=== PATIENT | male | born 1985 | race African-American/Black ===

== ENCOUNTER 2017-12-19 17:31 | Emergency (ER) | payer BC, OTHER ==
[2017-12-19 17:42] VITALS: BP 131/59; PULSE 68; RESP 20; TEMP 98
--- NOTE | 2017-12-19 18:37 | ED ---
General Adult HPI - General Chief complaint: Extremity Injury, Lower Stated complaint: Righ Foot Injury Time Seen by Provider: 12/19/17 18:22 Source: patient, RN notes reviewed Mode of arrival: ambulatory Limitations: no limitations - History of Present Illness Initial comments: 32-year-old male presents the emergency department for a chief complaint of right foot pain. Patient states he was trying to be funny and hit his foot on the top of a coffee table. Patient states he feels like the top of his foot is broken. Patient has never had surgery on that foot before. Patient has not tried ibuprofen or icing the extremity. This happened a couple hours ago. Patient states he did not fall or hit his head. Patient states he has full sensation in the right lower extremity and foot. Patient agrees to put ice on his foot in the emergency department. - Related Data Previous Rx's Medication Instructions Recorded Erythromycin Ophth Oint [Romycin 1 applic BOTH EYES QID #1 tube 07/03/16 Ophth Oint] Allergies Allergy/AdvReac Type Severity Reaction Status Date / Time No Known Allergies Allergy Verified 12/19/17 17:42 Review of Systems ROS Statement: Those systems with pertinent positive or pertinent negative responses have been documented in the HPI. ROS Other: All systems not noted in ROS Statement are negative. Past Medical History Past Medical History: No Reported History History of Any Multi-Drug Resistant Organisms: None Reported Past Surgical History: No Surgical Hx Reported Past Psychological History: No Psychological Hx Reported Smoking Status: Current every day smoker Past Alcohol Use History: None Reported Past Drug Use History: Marijuana General Exam Limitations: no limitations General appearance: alert, in no apparent distress Head exam: Present: atraumatic, normocephalic, normal inspection Respiratory exam: Present: normal lung sounds bilaterally. Absent: respiratory distress, wheezes, rales, rhonchi, stridor Cardiovascular Exam: Present: regular rate, normal rhythm, normal heart sounds. Absent: systolic murmur, diastolic murmur, rubs, gallop, clicks Extremities exam: Present: full ROM (Patient has full range of motion of the right ankle and digits of the right lower extremity.), tenderness (Tenderness to the dorsal aspect of the right foot. Patient has no tenderness to the fifth metatarsal. Patient has no tenderness to the medial or lateral malleoli. Patient has slight tenderness to the navicular bone.), normal capillary refill ( Refill less than 2 seconds and pedal pulse 2+ in the right lower extremity.), other (Patient has full sensation in the right foot.). Absent: joint swelling ( No swelling noted in the right lower extremity.), calf tenderness Course Vital Signs 12/19/17 17:40 Temperature 98 F Pulse Rate 68 Respiratory 20 Rate Blood Pressure 131/59 O2 Sat by Pulse 99 Oximetry Medical Decision Making - Medical Decision Making 32-year-old male presents the emergency department for a chief complaint of dorsal right foot pain. Patient was messing around and hit his foot on the top of the coffee table. Neurovascular intact in the right lower extremity: Cap refill less than 2 seconds, pedal pulse 2+, full sensation in the foot, full range of motion. Patient does have tenderness over the dorsal aspect of the foot including the navicular bone. No tenderness to the fifth metatarsal or medial and lateral malleolus. Patient has no pain with range of motion of the right ankle. X-ray of the right foot was obtained. 3 view x-ray of the right foot shows no fracture or malalignment in the soft tissues are unremarkable. Patient will go home with rice therapy and ibuprofen. I discussed rice therapy with him and he understands it. I also included instructions the discharge paperwork. I told him to take food with the Motrin and to make sure he takes it as directed and not more frequently due to side effects. Patient will follow up with primary care provider in one to 2 days. He was educated on the fact that if it does not feel better in 7-10 days he may need repeat x-rays. Disposition Clinical Impression: Foot pain Disposition: HOME SELF-CARE Condition: Good Instructions: RICE Therapy (ED) Additional Instructions: Please take ibuprofen or Tylenol for pain relief. Please return to the emergency department if you have any worsening symptoms. Please follow-up with primary care provider in one to 2 days. Do rice therapy As discussed. Instructions included in your packing. Referrals: Allen Marin MD [Primary Care Provider] - 1-2 days Time of Disposition: 18:57
--- NOTE | 2017-12-19 18:46 | XR ---
PROCEDURE: XR foot complete RT 3 views DATE AND TIME: 12/19/2017 6:40 PM REFERRING PHYSICIAN: Nasim Lujan CLINICAL INDICATION: PHH, Pain after injury TECHNIQUE: Department protocol. COMPARISON: None FINDINGS: There is no fracture or malalignment. The soft tissues are unremarkable. IMPRESSION: NO ACUTE PROCESS.
== END 2017-12-19 19:34 | disposition home or self-care (01) ==
LOC: EC 17:31
DX: M79.671 Pain in right foot (principal); F17.200 Nicotine dependence, unspecified, uncomplicated; W22.03XA Walked into furniture, initial encounter; Y92.009 Unspecified place in unspecified non-institutional (private) residence as the place of occurrence of the external cause; Y93.39 Activity, other involving climbing, rappelling and jumping off
CPT/HCPCS: 99283

== ENCOUNTER 2019-05-05 18:01 | Emergency (ER) | payer OTHER ==
[2019-05-05 18:09] VITALS: BP 115/65; PULSE 62; RESP 20; TEMP 98.5
--- NOTE | 2019-05-05 18:49 | ED ---
Extremity Problem HPI - General Chief complaint: Extremity Problem,Nontraumatic Stated complaint: Knee injury-[facility] Time Seen by Provider: 05/05/19 18:22 Source: patient, RN notes reviewed Mode of arrival: ambulatory Limitations: no limitations - History of Present Illness Initial comments: 33-year-old male presents emergency Department with chief complaint of left knee pain. Patient is had worsening aggressive pain for last month. Patient states he uses just her wives at work and get better but states now it's constant and is exacerbated by work. Patient cannot remember any injury but states that he moves parts in his right side to his left states is constantly putting pressure in his left knee and left hip region. Patient denies any prior knee surgeries no paresthesias at this time. Patient denies any back pain does report some mild left hip pain - Related Data Previous Rx's Medication Instructions Recorded Erythromycin Ophth Oint [Romycin 1 applic BOTH EYES QID #1 tube 07/03/16 Ophth Oint] Ibuprofen [Motrin] 600 mg PO Q8HR PRN #30 tab 05/05/19 Allergies Allergy/AdvReac Type Severity Reaction Status Date / Time No Known Allergies Allergy Verified 05/05/19 18:09 Review of Systems ROS Statement: Those systems with pertinent positive or pertinent negative responses have been documented in the HPI. ROS Other: All systems not noted in ROS Statement are negative. Past Medical History Past Medical History: No Reported History History of Any Multi-Drug Resistant Organisms: None Reported Past Surgical History: No Surgical Hx Reported Past Psychological History: No Psychological Hx Reported Smoking Status: Former smoker Past Alcohol Use History: None Reported Past Drug Use History: Marijuana General Exam Limitations: no limitations General appearance: alert, in no apparent distress Head exam: Present: atraumatic, normocephalic, normal inspection Respiratory exam: Present: normal lung sounds bilaterally. Absent: respiratory distress, wheezes, rales, rhonchi, stridor Cardiovascular Exam: Present: regular rate, normal rhythm, normal heart sounds. Absent: systolic murmur, diastolic murmur, rubs, gallop, clicks Extremities exam: Present: other (Left knee there is mild discomfort with palpation to the lateral portion no swelling neurovascular intact with equal pedal pulses, no laxity negative anterior posterior drawer there is tenderness along the left IT band) Neurological exam: Present: alert, oriented X3, CN II-XII intact, reflexes normal. Absent: motor sensory deficit Skin exam: Present: warm, dry, intact, normal color. Absent: rash Course Vital Signs 05/05/19 18:06 Temperature 98.5 F Pulse Rate 62 Respiratory 20 Rate Blood Pressure 115/65 O2 Sat by Pulse 99 Oximetry Medical Decision Making - Medical Decision Making 33-year-old male presented for knee pain. Patient symptoms related to see band syndrome. Patient will be given instructions for stretching and was started on anti-inflammatories. Disposition Clinical Impression: Knee pain, IT band syndrome Disposition: HOME SELF-CARE Condition: Stable Instructions (If sedation given, give patient instructions): Iliotibial Band Syndrome (ED) Additional Instructions: Please return to the Emergency Department if symptoms worsen or any other concerns. Prescriptions: Ibuprofen [Motrin] 600 mg PO Q8HR PRN #30 tab PRN Reason: Pain Is patient prescribed a controlled substance at d/c from ED?: No Referrals: Allen Marin MD [Primary Care Provider] - 1-2 days Time of Disposition: 19:15
--- NOTE | 2019-05-05 18:50 | XR ---
EXAMINATION TYPE: XR knee complete LT DATE OF EXAM: 05/05/2019 COMPARISON: 01/16/2013 HISTORY: Knee pain TECHNIQUE: 3 views FINDINGS: I see no fracture nor dislocation. Joint spaces are normal. There is no sign of knee joint effusion. IMPRESSION: Negative left knee exam. No change.
== END 2019-05-05 19:25 | disposition home or self-care (01) ==
LOC: EC 18:01
DX: M76.32 Iliotibial band syndrome, left leg (principal); Z87.891 Personal history of nicotine dependence; Y92.69 Other specified industrial and construction area as the place of occurrence of the external cause; Y99.0 Civilian activity done for income or pay
CPT/HCPCS: 99283

== ENCOUNTER → 2019-06-05 | Outpatient (CLI) | payer OTHER ==
--- NOTE | 2019-06-05 16:53 | MR ---
EXAMINATION TYPE: MR knee LT wo con DATE OF EXAM: 06/05/2019 COMPARISON: None HISTORY: Left knee pain TECHNIQUE: Multiplanar, multisequence imaging of the left knee is performed without IV contrast. FINDINGS: The anterior and posterior cruciate ligaments are intact. Lateral meniscus is intact. There is small horizontal area of increased signal within the posterior horn medial meniscus without extension to th e articular surface. There is no evidence of a soft tissue mass. The collateral ligaments are intact. I see no bony destructive process. There is no evidence of a fra cture. There is no bone edema. Patella appears intact. IMPRESSION: Negative MR scan of the left knee. No evidence of ligamentous or meniscal tear.
--- NOTE | 2019-06-05 16:59 | MR ---
EXAMINATION TYPE: MR knee RT wo con DATE OF EXAM: 06/05/2019 COMPARISON: HISTORY: Right knee pain TECHNIQUE: Multiplanar, multisequence imaging of the right knee is performed without IV contrast. FINDINGS: The anterior and posterior cruciate ligaments are intact. There is a very minute knee joint effusion. There is minimal increased signal within the posterior horn medial meniscus without extension to the articular surface. Joint spaces are fairly normal. The lateral meniscus is intact. The collateral li gaments are intact. There is small cartilaginous defect on the medial aspect of the articular surfac e of the patella on the axial images. There is a 4 mm area of slight increased signal in the anterior aspect of the medial femoral condyle consistent with small bone bruise. IMPRESSION: No evidence of ligament or meniscal tear. Possible osteocartilaginous defect of the medial aspect of the patella could relate to traumatic inju ry. There is adjacent area of minimal bone bruise of the anterior medial femoral condyle. Minute knee joint effusion.
== END | disposition home or self-care (01) ==
LOC: RADMRIMAIN 11:04
PROVIDERS: ATTEND Family Medicine
DX: S80.01XA Contusion of right knee, initial encounter (principal); M25.562 Pain in left knee

== ENCOUNTER 2020-04-16 11:15 | Emergency (ER) | payer OTHER ==
[2020-04-16 11:25] VITALS: BP 106/70; PULSE 77; RESP 20; TEMP 97.8
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
[2020-04-16] MEDS ORDERED: KETOROLAC 30 MG/ML 1 ML VIAL IM STA (12:39)
--- NOTE | 2020-04-16 12:56 | XR ---
EXAMINATION TYPE: XR hand complete RT , 3 VIEWS DATE OF EXAM ORDERED: 04/16/2020 HISTORY: right hand swelling. COMPARISON: None. FINDINGS: There is an undisplaced, minimally angulated fracture of the neck of the fourth metacarpal . There is associated soft tissue swelling. No additional fractures are seen. IMPRESSION: UNDISPLACED BUT MINIMALLY ANGULATED FRACTURE OF THE NECK OF THE FOURTH METACARPAL ON THE RIGHT. CODE A: INITIAL ENCOUNTER FOR CLOSED FRACTURE.
== END 2020-04-16 13:06 | disposition home or self-care (01) ==
LOC: EC 11:15
DX: S62.364A Nondisplaced fracture of neck of fourth metacarpal bone, right hand, initial encounter for closed fracture (principal); M79.644 Pain in right finger(s); Y04.2XXA Assault by strike against or bumped into by another person, initial encounter; Y92.009 Unspecified place in unspecified non-institutional (private) residence as the place of occurrence of the external cause
CPT/HCPCS: 99283; 96372; 73130; J1885

== ENCOUNTER → 2020-07-03 | Outpatient (CLI) | payer OTHER | END | disposition home or self-care (01) | LOC: LABWHC1 11:36 | PROVIDERS: ATTEND Family Medicine | DX: Z20.828 Contact with and (suspected) exposure to other viral communicable diseases (principal) | CPT/HCPCS: U0003; C9803 ==

== ENCOUNTER 2022-07-31 21:00 | Emergency (ER) | payer BC, OTHER ==
[2022-07-31 21:26] VITALS: BP 110/73; PULSE 77; RESP 16; TEMP 98.8
--- NOTE | 2022-07-31 22:07 | XR ---
EXAMINATION TYPE: XR chest 2V DATE OF EXAM: 07/31/2022 9:55 PM COMPARISON: 01/01/2011 TECHNIQUE: XR chest 2V Frontal and lateral views of the chest. CLINICAL INDICATION:Male, 36 years old with history of chest pain; FINDINGS: Lungs/Pleura: There is no evidence of pleural effusion, focal consolidation, or pneumothorax. Pulmonary vascularity: Unremarkable. Heart/mediastinum: Cardiomediastinal silhouette is unremarkable. Musculoskeletal: No acute osseous pathology. IMPRESSION: No acute cardiopulmonary disease/process.
[2022-07-31] MEDS ORDERED: KETOROLAC 15 MG/ML 1 ML VIAL IVP STA (23:06)
[2022-07-31 23:32] LABS: Basophils # (A) 0.1 k/uL (0-0.2); Basophils % (A) 1 %; Eosinophils # (A) 0.1 k/uL (0-0.7); Eosinophils % (A) 2 %; HCT 39.5 % (39.0-53.0); HGB 13.2 gm/dL (13.0-17.5); Lymphocytes # (A) 3.3 k/uL (1.0-4.8); Lymphocytes % (A) 50 %; MCH 32.1 pg (25.0-35.0); MCHC 33.6 g/dL (31.0-37.0); MCV 95.6 fL (80.0-100.0); Mean Platelet Volume 6.9; Monocytes # (A) 0.5 k/uL (0-1.0); Monocytes % (A) 7 %; Neutrophils # (A) 2.5 k/uL (1.3-7.7); Neutrophils % (A) 38 %; Platelet Count 256 k/uL (150-450); RBC 4.13 m/uL (4.30-5.90); RDW 12.4 % (11.5-15.5); WBC 6.6 k/uL (3.8-10.6)
[2022-07-31 23:40] LABS: ALT 16 U/L (4-49); AST 20 U/L (17-59); African American GFR (CKD) >90 (>60 ml/min/1.73 sqM); Albumin 4.2 g/dL (3.5-5.0); Alkaline Phosphatase 46 U/L (38-126); Anion Gap 4 mmol/L; Blood Urea Nitrogen 21 mg/dL (9-20); Calcium 9.2 mg/dL (8.4-10.2); Carbon Dioxide 27 mmol/L (22-30); Chloride 108 mmol/L (98-107); Glucose 90 mg/dL (74-99); Non-African American GFR(CKD) 87 (>60 ml/min/1.73 sqM); Potassium 4.5 mmol/L (3.5-5.1); Sodium 139 mmol/L (137-145); Total Bilirubin 0.3 mg/dL (0.2-1.3); Total Protein 6.3 g/dL (6.3-8.2)
--- NOTE | 2022-08-01 00:17 | ED ---
Chest Pain HPI - General Chief Complaint: Chest Pain Stated Complaint: Chest pain Time Seen by Provider: 07/31/22 22:56 Source: patient Mode of arrival: ambulatory Limitations: no limitations - History of Present Illness Initial Comments: Patient is a 36-year-old male presenting with chief complaint of chest pain. Pain has been present for the past few days, describes it as a soreness. Located on the lateral left chest wall. Pain does not worsen with inspiration or with movement. The pain is reproducible on palpation. No difficulty breathing. No cough, congestion, fever, chills, nausea, vomiting, abdominal pain, radiation of pain to the back, neck, or down the arm. - Related Data Previous Rx's Medication Instructions Recorded Erythromycin Ophth Oint [Romycin 1 applic BOTH EYES QID #1 tube 07/03/16 Ophth Oint] Ibuprofen [Motrin] 600 mg PO Q8HR PRN #30 tab 05/05/19 Allergies Allergy/AdvReac Type Severity Reaction Status Date / Time No Known Allergies Allergy Verified 04/16/20 11:25 Review of Systems ROS Statement: Those systems with pertinent positive or pertinent negative responses have been documented in the HPI. ROS Other: All systems not noted in ROS Statement are negative. EKG Findings - EKG Comments: EKG Findings:: Sinus rhythm with sinus arrhythmia. Rate 60. VA interval 159. QRS 91. QT 388. QTC 390. No ST deviation or T-wave inversion. EKG is interpreted by me as well as my attending Dr. Chapin Past Medical History Past Medical History: No Reported History History of Any Multi-Drug Resistant Organisms: None Reported Past Surgical History: No Surgical Hx Reported Past Psychological History: No Psychological Hx Reported Smoking Status: Never smoker Past Alcohol Use History: None Reported Past Drug Use History: Marijuana General Exam Limitations: no limitations General appearance: alert, in no apparent distress Head exam: Present: atraumatic, normocephalic, normal inspection Eye exam: Present: normal appearance Neck exam: Present: normal inspection Respiratory exam: Present: normal lung sounds bilaterally, chest wall tenderness. Absent: respiratory distress, wheezes, rales, rhonchi, stridor Cardiovascular Exam: Present: regular rate, normal rhythm, normal heart sounds. Absent: systolic murmur, diastolic murmur, rubs, gallop, clicks Neurological exam: Present: alert, oriented X3, CN II-XII intact Psychiatric exam: Present: normal affect, normal mood Skin exam: Present: warm, dry, intact, normal color. Absent: rash Course Vital Signs 07/31/22 21:24 Temperature 98.8 F Pulse Rate 77 Respiratory 16 Rate Blood Pressure 110/73 O2 Sat by Pulse 100 Oximetry Chest Pain MDM - MDM Patient is a 36-year-old male presenting with chief complaint of chest pain. Located on the lateral left chest wall. No alleviating or aggravating factors. On examination is reproducible on palpation. Heart and lungs are clear to auscultation. CBC is unremarkable. BUN 21, likely due to hydration status. Troponin is less than 0.012. Patient is negative for Covid. EKG shows no ischemic changes. Chest x-ray shows no acute process. Heart score is 0. Educated on costochondritis and supportive treatment. Follow-up with PCP. Report back to ER with any new or worsening symptoms. Discussed return parameters and answered all questions. Patient conveyed verbal understanding and agreed to the plan. I discussed this case in detail with my attending Dr. Chapin Disposition Clinical Impression: Atypical chest pain Disposition: HOME SELF-CARE Condition: Good Instructions (If sedation given, give patient instructions): Chest Pain (ED), Costochondritis (ED) Additional Instructions: Follow-up with PCP. Report back to ER with any new or worsening symptoms. Take Motrin and Tylenol as needed for pain control. Is patient prescribed a controlled substance at d/c from ED?: No Referrals: Allen Marin MD [Primary Care Provider] - 1-2 days Time of Disposition: 00:30
== END 2022-08-01 00:49 | disposition home or self-care (01) ==
LOC: EC 21:00
DX: R07.89 Other chest pain (principal); F12.90 Cannabis use, unspecified, uncomplicated; Z20.822 Contact with and (suspected) exposure to COVID-19
CPT/HCPCS: 36415; 93005; 80053; 84484; 85025; 87635; 71046; 99285; 96374; J1885